=== PATIENT | female | born 1945 | race Two or more races ===

== ENCOUNTER 2019-05-10 10:55 | Outpatient (CLI) | payer OTHER ==
[~2019-05-10 10:55] MED LIST: ADVAIR 2501 DISK W/1; ANTIVERT25 M1 PO; HYZAAR 100-251 UDTAB PO; PAXIL CR25 MG PO; SINGULAIR10 MG; VASOTEC20 MG PO; VYTORIN 10-20 M1 TAB PO
== END 2019-05-10 11:23 | disposition home or self-care (01) ==
LOC: NUCLEAR 10:55
DX: M81.0 Age-related osteoporosis without current pathological fracture (principal)

== ENCOUNTER 2019-05-10 11:33 | Outpatient (CLI) | payer OTHER | END 2019-05-10 11:36 | disposition home or self-care (01) | LOC: MAMO-SONO 11:33 | DX: Z12.31 Encounter for screening mammogram for malignant neoplasm of breast (principal); N60.11 Diffuse cystic mastopathy of right breast; N60.12 Diffuse cystic mastopathy of left breast ==

== ENCOUNTER 2021-11-06 22:01 | Emergency (ER) | payer OTHER ==
[~2021-11-06] VITALS: Ht 160 cm; Wt 96.2 kg
[2021-11-06] MEDS ORDERED: ATORVASTATIN CA20 MG PO (22:21)
[2021-11-06] MEDS ORDERED: METOPROLOL TART50 MG PO (22:21)
[2021-11-06] MEDS ORDERED: METFORMIN HCL500 M4 PO (22:22)
[2021-11-07] MEDS ORDERED: VISTARIL50 MG PO (04:41)
== END 2021-11-07 04:48 ==
LOC: ER 22:01
DX: I10 Essential (primary) hypertension (principal)

== ENCOUNTER 2021-11-07 08:39 | Emergency (ER) | payer OTHER ==
[~2021-11-07] VITALS: Ht 160 cm; Wt 96.2 kg
[~2021-11-07 08:39] MED LIST changes: +ATORVASTATIN CA20 MG PO; +METFORMIN HCL500 M4 PO; +METOPROLOL TART50 MG PO; +VISTARIL50 MG PO
== END 2021-11-07 14:00 | disposition home or self-care (01) ==
LOC: ER 08:39
DX: R42 Dizziness and giddiness (principal); I10 Essential (primary) hypertension; Z88.6 Allergy status to analgesic agent; Z91.011 Allergy to milk products; Z91.013 Allergy to seafood

== ENCOUNTER 2023-10-30 19:54 | Emergency (ER) | payer OTHER ==
[~2023-10-30] VITALS: Ht 160 cm; Wt 93.4 kg
[2023-10-30] MEDS ORDERED: AVAPRO75 MG PO (20:54)
[2023-10-30] MEDS ORDERED: CLONAZEPAM0.5 MG PO (20:55)
== END 2023-10-31 00:43 | disposition home or self-care (01) ==
LOC: ER 19:54
DX: R51.9 Headache, unspecified (principal); I10 Essential (primary) hypertension

== ENCOUNTER 2025-01-18 19:48 | Emergency (ER) | payer OTHER ==
[~2025-01-18] VITALS: Ht 160 cm; Wt 90.7 kg
[~2025-01-18 19:48] MED LIST changes: +ALLEGRA ALLERG180 MG PO; +AVAPRO75 MG PO; +CLONAZEPAM0.5 MG PO; +IRBESARTAN-HCT1 EACH PO; +NORVASC2.5 MG PO; +PAXIL CR37.5 MG PO; +TRELEGY ELLIPT1 EAC1 IH
[2025-01-18] MEDS ORDERED: ORPHENADRINE CITRATE 30 MG/ML AMPUL IM STA (20:25)
[2025-01-18] MEDS ORDERED: DEXAMETHASONE SODIUM PHOSPHATE 4 MG/ML VIAL IM STA (20:25)
[2025-01-18] MEDS ORDERED: TRAMADOL HCL 50 MG TABLET PO STA (20:26)
[2025-01-18] MEDS ORDERED: ORPHENADRINE CITRATE 30 MG/ML AMPUL ONE (21:05)
[2025-01-18] MEDS ORDERED: DEXAMETHASONE SODIUM PHOSPHATE 4 MG/ML VIAL ONE (21:05)
[2025-01-18 21:22] VITALS: BP 144/88; O2SAT 98
== END 2025-01-18 21:23 | disposition home or self-care (01) ==
LOC: ER 19:48
DX: M62.830 Muscle spasm of back (principal); Z88.6 Allergy status to analgesic agent; Z91.011 Allergy to milk products; Z91.013 Allergy to seafood
CPT/HCPCS: 96372; 99283; J1100; J2360

== ENCOUNTER 2025-02-11 09:36 | Emergency (ER) | payer OTHER ==
[~2025-02-11] VITALS: Ht 160 cm; Wt 90.7 kg
[2025-02-11] MEDS ORDERED: LEVALBUTEROL HCL 0.63 MG/3 ML SOLUTION IH SCH (11:00)
[2025-02-11] MEDS ORDERED: GUAIFEN/DEXTROMETHORPHAN/PE 10 ML BLIST.PACK PO ONE ×2 (11:00→11:01)
[2025-02-11] MEDS ORDERED: METHYLPREDNISOLONE SOD SUCC 125 MG VIAL IV ONE (11:00)
[2025-02-11] MEDS ORDERED: METHYLPREDNISOLONE SOD SUCC 125 MG VIAL ONE (11:01)
[2025-02-11] MEDS ORDERED: WATER FOR INJ.,BACTERIOSTATIC 30 ML VIAL IJ ONE (11:02)
[2025-02-11 11:44] LABS: BASO % 0.6 % (0.1-1.2); EOS # 0.15 (0.04-0.54); EOS % 1.8 % (0.7-7.0); HEMATOCRIT 36.8 % (34.1-44.9); HEMOGLOBIN 12.2 g/dL (11.2-15.7); LYMPH # 0.51 (1.18-3.74); MEAN CORPUSCULAR HEMOGLOBIN 30.3 pg (25.6-32.2); MONO # 1.08 (0.24-0.82); NEUT # 6.63 (1.56-6.13); NEUT % 78.3 % (34.0-71.1); PLATELET COUNT 248 K/uL (163-369); RED BLOOD COUNT 4.02 M/uL (3.93-5.22); RED CELL DISTRIBUTION WIDTH 13.1 % (11.6-14.4)
[2025-02-11] MEDS ORDERED: LEVALBUTEROL HCL 0.63 MG/3 ML SOLUTION IH ONE (11:50)
[2025-02-11 11:51] LABS: MONO % 12.8 % (4.7-12.5)
[2025-02-11 11:56] LABS: INFLUENZA A AG NEGATIVE (NEGATIVE); INFLUENZA B AG NEGATIVE (NEGATIVE)
[2025-02-11 11:57] LABS: COVID-19 AG POSITIVE (NEGATIVE)
[2025-02-11 12:06] LABS: ALBUMIN 3.8 gm/dL (3.4-5.0); BILIRUBIN TOTAL 0.43 mg/dL (0.3-1.2); CALCIUM 9.7 mg/dL (8.5-10.1); CREATININE SERUM 1.21 mg/dL (0.55-1.02); GFR 42.7; GLOBULINA 3.8 G/DL (2.4-3.5); POTASSIUM 3.95 mEq/L (3.5-5.1); TOTAL PROTEIN 7.6 gm/dL (6.4-8.2)
== END 2025-02-11 13:50 | disposition home or self-care (01) ==
LOC: ER 09:38
PROVIDERS: Emergency Medicine
DX: J45.901 Unspecified asthma with (acute) exacerbation (principal); I10 Essential (primary) hypertension; Z88.6 Allergy status to analgesic agent; Z91.011 Allergy to milk products; Z91.013 Allergy to seafood

== ENCOUNTER 2025-02-13 07:16 | Emergency (ER) | payer OTHER ==
[~2025-02-13] VITALS: Ht 160 cm; Wt 90.7 kg
[2025-02-13] MEDS ORDERED: ORPHENADRINE CITRATE 30 MG/ML AMPUL ONE (08:39)
[2025-02-13] MEDS ORDERED: DIPHENHYDRAMINE HCL 50 MG/ML VIAL 1ML ONE (08:39)
[2025-02-13] MEDS ORDERED: ONDANSETRON HCL 2 MG/ML VIAL ONE (08:39)
[2025-02-13] MEDS ORDERED: FAMOTIDINE/PF 20 MG/2 ML VIAL ONE (08:40)
[2025-02-13] MEDS ORDERED: ORPHENADRINE CITRATE 30 MG/ML AMPUL IV ONE (08:45)
[2025-02-13] MEDS ORDERED: FAMOtidine 10 MG/ML (4ML VIAL) IV ONE (08:45)
[2025-02-13] MEDS ORDERED: ONDANSETRON HCL 2 MG/ML VIAL IV ONE (08:45)
[2025-02-13] MEDS ORDERED: DIPHENHYDRAMINE HCL 50 MG/ML VIAL 1ML IV ONE (08:45)
[2025-02-13] MEDS ORDERED: 0.9 % SODIUM CHLORIDE 1,000 ML IV ONE (08:45)
[2025-02-13] MEDS ORDERED: LEVALBUTEROL HCL 1.25 MG/3 ML SOLUTION IH ONE (09:15)
[2025-02-13] MEDS ORDERED: LEVALBUTEROL HCL 0.63 MG/3 ML SOLUTION IH ONE (09:28)
[2025-02-13 09:29] LABS: BASO % 0.4 % (0.1-1.2); EOS # 0.03 (0.04-0.54); EOS % 0.4 % (0.7-7.0); HEMATOCRIT 36.5 % (34.1-44.9); LYMPH # 0.86 (1.18-3.74); MEAN CORPUSCULAR HEMOGLOBIN 30.5 pg (25.6-32.2); MONO # 1.21 (0.24-0.82); NEUT % 70.2 % (34.0-71.1); PLATELET COUNT 245 K/uL (163-369); RED BLOOD COUNT 3.94 M/uL (3.93-5.22); RED CELL DISTRIBUTION WIDTH 13.2 % (11.6-14.4)
[2025-02-13 09:34] LABS: MONO % 16.9 % (4.7-12.5)
[2025-02-13 09:57] LABS: ALBUMIN 3.6 gm/dL (3.4-5.0); BILIRUBIN TOTAL 0.26 mg/dL (0.3-1.2); CREATININE SERUM 1.05 mg/dL (0.55-1.02); GFR 50.3; GLOBULINA 3.6 G/DL (2.4-3.5); POTASSIUM 3.99 mEq/L (3.5-5.1); TOTAL PROTEIN 7.2 gm/dL (6.4-8.2)
[2025-02-13 10:12] LABS: URINE APPEARANCE Clear; URINE BILIRRUBIN Negative (NEGATIVE); URINE BLOOD Trace; URINE COLOR Yellow; URINE GLUCOSE Negative (NEGATIVE); URINE KETONE Negative (NEGATIVE); URINE LEUKOCYTE Negative; URINE NITRATE Negative; URINE PROTEIN Negative (NEGATIVE); URINE UROBILINOGEN 0.2 E.U./dl
[2025-02-13 10:16] LABS: URINE BACTERIA 17.1 uL (0.0-1933)
[2025-02-13 10:26] LABS: INR 0.97; PARTIAL THROMBOPLASTIN TIME 23.4 SECONDS (22.0-34.0); PROTHROMBIN TIME 10.6 SECONDS (9.0-11.5)
[2025-02-13 10:44] LABS: URINE RBC 1.4 uL (0.0-20.8)
[2025-02-13] MEDS ORDERED: PRILOSEC OTC20 MG PO (17:04)
[2025-02-13] MEDS ORDERED: PAXLOVID 150-11 EAC2 PO (17:04)
== END 2025-02-13 17:08 | disposition home or self-care (01) ==
LOC: ER 07:21
PROVIDERS: General Practice
DX: R10.11 Right upper quadrant pain (principal); R53.1 Weakness; R10.9 Unspecified abdominal pain; I10 Essential (primary) hypertension; E11.9 Type 2 diabetes mellitus without complications; Z88.6 Allergy status to analgesic agent; Z88.8 Allergy status to other drugs, medicaments and biological substances; Z91.011 Allergy to milk products; Z91.013 Allergy to seafood
CPT/HCPCS: 36415; 74177; 76700; 94640; Q9965

== ENCOUNTER 2025-07-17 12:28 | Outpatient (CLI) | payer OTHER ==
[~2025-07-17 12:28] MED LIST changes: +PAXLOVID 150-11 EAC2 PO; +PRILOSEC OTC20 MG PO
== END 2025-07-17 12:30 | disposition home or self-care (01) ==
LOC: RAD 12:28
DX: J20.0 Acute bronchitis due to Mycoplasma pneumoniae (principal); R50.9 Fever, unspecified; R05.1 Acute cough

== ENCOUNTER 2025-07-24 13:07 | Outpatient (CLI) | payer OTHER | END 2025-07-24 13:14 | disposition home or self-care (01) | LOC: MAMO-SONO 13:07 | DX: N63.0 Unspecified lump in unspecified breast (principal); Z12.31 Encounter for screening mammogram for malignant neoplasm of breast ==